=== PATIENT | female | born 1950 | race Caucasian/White ===

== ENCOUNTER 2018-07-26 09:41 | Emergency (ER) | payer OTHER, BC ==
[2018-07-26] MEDS ORDERED: DIPHTH,PERTUSS(ACELL),TET 0.5 ML DISP.SYRIN IM ONE ×3 (09:43→10:03)
--- NOTE | 2018-07-26 09:47 | PDOC ---
History of Present Illness - General Chief Complaint: Injury Stated Complaint: LEFT 3RD FINGER CRUSH Time Seen by Provider: 07/26/18 09:41 History Source: Patient Exam Limitations: No Limitations - History of Present Illness Initial Comments: Pt is a 68 yo F, with no significant PMH, who is presenting with a laceration to her L 3rd digit after pinching her finger in the metal edge of the trash compactor. Pt states the door hinge of the compactor shut on her finger. She washed the site with cold water, and had minimal bleeding. Pt denies any numbness or weakness of the digit or hand. Pt denies any history of orthopedic surgeries or hand injuries in the past. Pt denies any recent fevers/chills, headache, vision changes, syncope, chest pain, palpitations, SOB, nausea/ vomiting, abdominal pain, urinary symptoms, diarrhea/constipation, or leg swelling. Social: Pt drinks 1 "cocktail" per day. Denies any cigarette or drug use. Pt denies any recent travel or sick contacts. Surgical: no relevant history. Family: no relevant history. 07/26/18 11:47 Past History - Travel Traveled outside of the country in the last 30 days: No Close contact w/someone who was outside of country & ill: No - Past Medical History Allergies/Adverse Reactions: Allergies Allergy/AdvReac Type Severity Reaction Status Date / Time Penicillins Allergy Rash Verified 07/26/18 09:42 Home Medications: Ambulatory Orders Clindamycin [Cleocin -] 300 mg PO TID 4 Days #12 capsule 07/26/18 Diabetes: No HTN: No Trauma Specific PMHX - Complaint Specific PMHX Arthritis: No Back Injury: No Neck Injury: No Hx Sacro Iliac Joint Dysfunction: No Review of Systems - Review of Systems Able to Perform ROS?: Yes Is the patient limited E[place]an proficient: No Constitutional: Yes: Weight Stable. No: Chills, Diaphoresis, Fever, Loss of Appetite, Malaise HEENTM: No: Recent change in vision, Nose Congestion, Throat Pain, Throat Swelling, Difficulty Swallowing Respiratory: No: Cough, Orthopnea, Shortness of Breath Cardiac (ROS): No: Chest Pain, Edema, Irregular Heart Rate, Lightheadedness, Palpitations, Syncope, Chest Tightness ABD/GI: No: Constipated, Diarrhea, Nausea, Poor Appetite, Poor Fluid Intake, Vomiting : No: Burning, Dysuria, Pain, Urgency Musculoskeletal: Yes: See HPI, Other (distal L 3rd finger tip swelling/pain). No: Back Pain, Joint Pain, Joint Swelling Integumentary: Yes: Bruising (distal 3rd L fingertip near laceration, minor ecchymosis). No: Rash Neurological: No: Numbness, Paresthesia, Tingling, Weakness Psychiatric: No: Sleep Pattern Change, Change in Appetite Endocrine: No: Increased Urine, Change in Weight Hematologic/Lymphatic: No: Anemia, Blood Clots, Easy Bleeding, Easy Bruising All Other Systems: Reviewed and Negative *Physical Exam - Physical Exam Comments: Vitals stable, pt afebrile. Pt in NAD, normal body habitus. Pt alert and oriented x3. laundry sorter generally intact, muscular strength and sensation intact. Sensation in all digits intact (radial, ulnar, median), movements of all fingers WNL. No midline spinal tenderness, step-offs, or crepitus. Head normocephalic, atraumatic. Eyes PERRLA, EOMI. Oropharynx without erythema or exudates, no LAD b/l. No nasal congestion, hearing intact. Clear heart sounds, S1/S2, no JVD, b/l pedal edema, or heart murmur. Clear lung sounds, no respiratory distress, wheezes, crackles, or accessory muscle use. No abdominal or CVA tenderness to palpation, no rebound, no guarding. Abdomen soft, non-distended, and with normoactive bowel sounds. Small (~0.75 cm superficial laceration and ~0.5 cm superficial laceration with no subcut exposed) on distal L 3rd digit. Mild ecchymosis around laceration, no purulent drainage, bleeding controlled. Skin without jaundice or rash. 07/26/18 11:37 Procedures - Laceration/Wound Repair Left Distal Finger 3rd digit Wound Length: to 2.5 cm Wound Explored: clean, no foreign body present Wound's Depth, Shape: superficial, linear Irrigated w/ Saline: Yes Betadine Prep: Yes Anesthesia: 1% Lidocaine Amount of Anesthetic (ccs): 3 (digital block) Wound Debrided: minimal Wound Repaired With: Sutures Suture Size/Type: 5:0, nylon Number of Sutures: 2 Layer Closure: No Number of Deep Layer Sutures: 0 Sterile Dressing Applied: Yes Splint Applied: No Sling Applied: No Medical Decision Making - Medical Decision Making Pt was seen at bedside, also will be seen by attending Dr. Fang. Pt presenting with a laceration to her L 3rd digit after pinching her finger in the metal edge of the trash compactor. Pt states the door hinge of the compactor shut on her finger. She washed the site with cold water, and had minimal bleeding. Pt denies any numbness or weakness of the digit or hand. Pt denies any history of orthopedic surgeries or hand injuries in the past. Pt denies any recent fevers/ chills, headache, vision changes, syncope, chest pain, palpitations, SOB, nausea /vomiting, abdominal pain, urinary symptoms, diarrhea/constipation, or leg swelling. Superficial lacerations to L 3rd digit on distal fingertip, no obvious involvement of joint space or nail bed. Will get x-ray of L fingers to eval for distal tuft fracture. Provided 650 mg PO tylenol and 450 mg PO clindamycin for pain control and abx coverage, as wound was potentially dirty from trash compactor site. X-ray showed no foreign body or fracture to the 3rd digit (read with Dr. Fang). Wound was repaired with 2, 5:0 sutures (please see procedure note). Bleeding was well controlled throughout procedure, with intact sensation and movements of the hand and digits before and after suture placement. Sterile bandage and bacitracin applied. Pt can be discharged to home with follow-up. Pt advised to follow-up with PCP in 1-2 days and has been referred to Hand (Dr. Staley). Strict return precautions provided with pt understanding. Advised pt to follow-up in 5-7 days for suture removal, wound care instructions provided to pt (written and verbally). 07/26/18 11:41 *DC/Admit/Observation/Transfer Diagnosis at time of Disposition: Laceration of finger of left hand Qualifiers: Encounter type: initial encounter Finger: middle finger Damage to nail status: without damage Foreign body presence: without foreign body Qualified Code(s): S61.213A - Laceration without foreign body of left middle finger without damage to nail, initial encounter - Discharge Dispostion Disposition: HOME Condition at time of disposition: Good Decision to Admit order: No - Prescriptions Prescriptions: Clindamycin [Cleocin -] 300 mg PO TID 4 Days #12 capsule - Referrals Referrals: Sg Staley MD [Staff Physician] - - Patient Instructions Printed Discharge Instructions: DI for Laceration Repair -- Finger Additional Instructions: You were seen in the ER today for a laceration of your L middle finger. The results of your x-ray today did not show any fracture or foreign body. Please follow-up with your primary care doctor and Hand (Dr. Staley) within 1-2 days to discuss your visit and make sure your symptoms have improved. Please return to the ER in 5-7 days for suture removal. We have sent antibiotics to your pharmacy (clindamycin), please take this as prescribed. We also provided a tetanus booster today. Please return to the ER if you have any worsening pain, development of fevers or chills, spreading warmth or redness in the finger or hand, discharge from the finger, loss of consciousness, inability to tolerate food or fluids, or any other concerns. - Post Discharge Activity
[2018-07-26 09:55] VITALS: BP 146/89; PULSE 75; TEMP 98.6; BMI 28.3
[2018-07-26] MEDS ORDERED: ACETAMINOPHEN 325 MG TABLET (FP) PO ONE (09:57)
[2018-07-26] MEDS ORDERED: ACETAMINOPHEN 325 MG TABLET (FP) ONE ×2 (09:59→10:03)
[2018-07-26] MEDS ORDERED: CLINDAMYCIN HCL 150 MG CAPSULE (FP) PO ONE (10:59)
--- NOTE | 2018-07-26 10:59 | PDOC ---
Attending Attestation - Resident Resident Name: Luciana Navarro - ED Attending Attestation I have performed the following: I have examined & evaluated the patient, The case was reviewed & discussed with the resident, I agree w/resident's findings & plan, Exceptions are as noted - HPI HPI: 07/26/18 16:50 Reviewed Residents HPI - Physicial Exam PE: 07/26/18 16:50 Reviewed Residents PE - Medical Decision Making 07/26/18 17:29 68 years old with crush injury to fingertip. No obvious fracture on x-ray. Given that injury occurred and trash compactor will cover with antibiotics. Patient sutured with good approximation. Findings, the need for follow-up and strict return instructions discussed with patient.
[2018-07-26] MEDS ORDERED: CLINDAMYCIN HCL 150 MG CAPSULE (FP) ONE (11:03)
== END 2018-07-26 11:11 | disposition home or self-care (01) ==
LOC: FER 09:41
PROC: 0HQGXZZ Repair Left Hand Skin, External Approach (ICD-10-PCS; principal; 2018-07-26)
DX: S61.213A Laceration without foreign body of left middle finger without damage to nail, initial encounter (principal); W23.0XXA Caught, crushed, jammed, or pinched between moving objects, initial encounter; Y93.89 Activity, other specified; Y92.89 Other specified places as the place of occurrence of the external cause
CPT/HCPCS: 12001-25; 73140-TC-LT-FY; 90715; 99282-25

== ENCOUNTER 2018-07-30 11:39 | Emergency (ER) | payer OTHER, BC | END 2018-07-30 12:15 | disposition home or self-care (01) | LOC: FER 11:39 ==